=== PATIENT | female | born 1980 | race African-American/Black ===

== ENCOUNTER 2017-10-04 09:04 | Emergency (ER) | payer OTHER ==
[~2017-10-04] VITALS: Ht 165.1 cm; Wt 55.0 kg
[2017-10-04] MEDS ORDERED: IBUPROFEN 600MG TABLET PO ONE (09:45)
[2017-10-04] MEDS ORDERED: CYCLOBENZAPRINE 10MG TABLET PO ONE (09:45)
[2017-10-04 10:07] VITALS: BP 126/86
== END 2017-10-04 11:02 | disposition home or self-care (01) ==
LOC: ER 09:57
DX: M54.5 Low back pain (principal); V89.2XXA Person injured in unspecified motor-vehicle accident, traffic, initial encounter; Y93.89 Activity, other specified; Y92.89 Other specified places as the place of occurrence of the external cause; Y99.8 Other external cause status; Z98.51 Tubal ligation status
CPT/HCPCS: 72100; 81025; 99284

== ENCOUNTER 2024-12-12 16:28 | Emergency (ER) | payer OTHER ==
[~2024-12-12] VITALS: Ht 165.1 cm; Wt 70.0 kg
[2024-12-12 16:32] VITALS: O2SAT 99
[2024-12-12 17:00] VITALS: TEMP 36.8
[2024-12-12 17:18] LABS: HEMATOCRIT. 39.7 % (36.0-48.0); HEMOGLOBIN. 13.2 g/dL (12.0-16.0); MEAN CORPUSCULAR HEMOGLOBIN 28.9 pg (28.0-32.0); MEAN CORPUSCULAR HGB CONC 33.3 g/dL (31.0-37.0); MEAN PLATELET VOLUME 8.7 fl (7.4-10.4); PLATELET 254 x1000/uL (130-400); RED BLOOD CELL COUNT 4.56 mill/uL (4.2-5.4); RED CELL DISTRIBUTION WIDTH 13.2 % (11.6-14.6); WHITE BLOOD COUNT 9.1 x1000/uL (4.5-11.0)
[2024-12-12 17:20] LABS: DIFFERENTIAL COMMENT 1
[2024-12-12 17:29] LABS: PROTHROMBIN TIME 10.8 sec (9.6-11.0)
[2024-12-12] MEDS: ONDANSETRON HCL 4MG/2ML INJ IV STA (17:39)
[2024-12-12] MEDS: SODIUM CHLORIDE 0.9% 1,000 ML IV ONE (17:39)
[2024-12-12] MEDS: MORPHINE SULFATE 4 MG/ML INJ (FOR IV/IM USE) IV STA (17:39)
[2024-12-12 17:44] LABS: CHLORIDE 108 mEq/L (98-107); POTASSIUM 3.2 mEq/L (3.5-5.1); SODIUM 140 mEq/L (136-145)
[2024-12-12 17:45] LABS: CARBON DIOXIDE 22 mEq/L (21-32)
[2024-12-12 17:50] LABS: CREATININE 0.8 mg/dL (0.6-1.0); GLUCOSE 96 mg/dL (70-105); UREA NITROGEN BLOOD 10 mg/dL (9-23)
[2024-12-12 18:20] LABS: PLATELET ESTIMATE NORMAL
[2024-12-12 18:33] LABS: CLARITY URINE CLEAR (CLEAR); GLUCOSE URINE NEGATIVE (NEGATIVE); KETONES URINE NEGATIVE (NEGATIVE); LEUKOCYTE ESTERASE URINE 2+ (NEGATIVE); NITRITE URINE NEGATIVE (NEGATIVE); OCCULT BLOOD URINE 1+ (NEGATIVE); PH URINE 6.5 (4.5-8.0); PROTEIN URINE NEGATIVE (NEGATIVE); SPECIFIC GRAVITY URINE 1.007 (1.005-1.030); UROBILINOGEN URINE 0.2 E.U./dL (0.2-1.0)
[2024-12-12 18:59] LABS: COLOR URINE STRAW (YELLOW)
[2024-12-12 19:00] LABS: BACTERIA URINE TRACE; RBC URINE 0-2 /hpf (0-2); SQUAMOUS EPITHELIAL CELL URINE 1+ /lpf (RARE/1+); WBC URINE 0-2 /hpf (0-2)
[2024-12-12 20:14] LABS: UCG KIT EXPIRATION DATE 11/27/2026; UCG KIT LOT# 946166; UCG SCREEN NEGATIVE
[2024-12-12] MEDS: MORPHINE SULFATE 4 MG/ML INJ (FOR IV/IM USE) IV SCH (20:33)
[2024-12-12] MEDS ORDERED: IBUP-2029 MT (21:53)
[2024-12-12] MEDS ORDERED: TRAM50TA3 MT (21:53)
[2024-12-12 22:13] VITALS: BP 100/60; PULSE 79; RESP 19; O2SAT 95
[2024-12-12] MEDS ORDERED: IOHEXOL-300 100 ML BOTTLE ONE (23:04)
== END 2024-12-12 22:25 | disposition home or self-care (01) ==
LOC: ER 16:28
DX: N83.202 Unspecified ovarian cyst, left side (principal); Z98.51 Tubal ligation status; Z79.899 Other long term (current) drug therapy
CPT/HCPCS: 80048; 81003; 81025; 83690; 85025; 85610; 36415; 74177; 96361; 96374; 96375; 96376; 99285; Q9967; J2405; J2270; J7030; Z7610 ×2; A4606

== ENCOUNTER 2024-12-15 08:48 | Emergency (ER) | payer OTHER ==
[~2024-12-15] VITALS: Ht 165.1 cm; Wt 77.0 kg
[~2024-12-15 08:48] MED LIST: IBUP-2029 MT; TRAM50TA3 MT
[2024-12-15 08:54] VITALS: O2SAT 97
[2024-12-15 10:48] LABS: CLARITY URINE TURBID (CLEAR); COLOR URINE BLOODY (YELLOW); GLUCOSE URINE NEGATIVE (NEGATIVE); KETONES URINE NEGATIVE (NEGATIVE); NITRITE URINE NEGATIVE (NEGATIVE); OCCULT BLOOD URINE 3+ (NEGATIVE); PROTEIN URINE 2+ (NEGATIVE); SPECIFIC GRAVITY URINE 1.027 (1.005-1.030)
[2024-12-15 10:49] LABS: LEUKOCYTE ESTERASE URINE NEGATIVE (NEGATIVE)
[2024-12-15 11:00] VITALS: BP 118/75; PULSE 88; RESP 17; TEMP 36.8; O2SAT 97
[2024-12-15 11:13] LABS: BACTERIA URINE 1+; RBC URINE TNTC /hpf (0-2); SQUAMOUS EPITHELIAL CELL URINE 2+ /lpf (RARE/1+)
[2024-12-15 11:14] LABS: YEAST URINE NONE SEEN
== END 2024-12-15 11:14 | disposition home or self-care (01) ==
LOC: ER 08:48
DX: N83.202 Unspecified ovarian cyst, left side (principal); N93.8 Other specified abnormal uterine and vaginal bleeding; Z98.51 Tubal ligation status; Z79.899 Other long term (current) drug therapy
CPT/HCPCS: 76830; 76856; 81003; 81025; 99284

== ENCOUNTER 2025-07-08 07:15 | Emergency (ER) | payer OTHER ==
[~2025-07-08] VITALS: Ht 165.1 cm; Wt 77.0 kg
[~2025-07-08 07:15] MED LIST changes: +IBUP-1455 MT; -IBUP-2029 MT
[2025-07-08 07:17] VITALS: O2SAT 98
[2025-07-08 07:39] VITALS: BP 126/77; PULSE 109; RESP 18; TEMP 36.8; O2SAT 99
[2025-07-08] MEDS ORDERED: SULF1TAB48 PO (08:43)
[2025-07-08] MEDS ORDERED: CEPH500C2 PO (08:43)
== END 2025-07-08 08:56 | disposition home or self-care (01) ==
LOC: ER 07:15
DX: L03.116 Cellulitis of left lower limb (principal); Z98.51 Tubal ligation status
CPT/HCPCS: 73630; 99283